=== PATIENT | male | born 1990 | race Caucasian/White ===

== ENCOUNTER 2024-05-17 12:02 | Day surgery (SDC) | payer OTHER ==
[2024-05-10 10:56] VITALS: BMI 23.9
[2024-05-17 13:25] VITALS: TEMP 98
[2024-05-17 13:26] VITALS: BP 124/68; PULSE 74; RESP 19
== END 2024-05-17 13:27 | disposition home or self-care (01) ==
LOC: FASU-ENDO 12:02
PROVIDERS: ATTEND Internal Medicine Gastroenterology
PROC: 0DBN8ZX Excision of Sigmoid Colon, Via Natural or Artificial Opening Endoscopic, Diagnostic (ICD-10-PCS; principal; 2024-05-17 12:35)
DX: K51.80 Other ulcerative colitis without complications (principal); K52.89 Other specified noninfective gastroenteritis and colitis; Z87.19 Personal history of other diseases of the digestive system
CPT/HCPCS: 36415; 86480; 86704; 86803; 87340; 87389; 87517; 87536; 88305-TC